=== PATIENT | male | born 1960 | race Caucasian/White ===

== ENCOUNTER 2018-04-17 12:55 | Emergency (ER) | payer MEDICAID ==
[~2018-04-17] VITALS: Ht 165.1 cm; Wt 68.0 kg
[2018-04-17 13:24] VITALS: BP 149/82
[2018-04-17 14:11] LABS: Urine WBC None Seen /hpf (0 - 3)
[2018-04-17 14:49] LABS: Urine Bacteria NONE SEEN /hpf (None Seen); Urine Blood TRACE /uL (Negative); Urine Mucus FEW (None Seen); Urine Specific Gravity 1.027 (1.001-1.035)
[2018-04-17 15:03] LABS: Hematocrit 39.6 % (41.0-53.0); Hemoglobin 13.3 g/dL (13.5-17.5); Mean Corpuscular Hemoglobin 31.6 pg (28.0-32.0); Mean Corpuscular Hgb Conc. 33.5 g/dL (32.0-36.0); Mean Corpuscular Volume 94.2 fL (80.0-100.0); Platelet Count (auto) 227 10^3/uL (140-450); White Blood Cell 12.4 10^3/uL (4.4-10.8)
[2018-04-17 15:17] LABS: Albumin 3.4 g/dL (3.4-5.0); Anion Gap 9 (5-15); Calcium 8.6 mg/dL (8.5-10.1); Carbon Dioxide 28 mmol/L (21-32); Chloride 103 mmol/L (98-107); Glucose 138 mg/dL (74-106); Magnesium 2.1 mg/dL (1.6-2.6); Potassium 3.6 mmol/L (3.5-5.1); Sodium 140 mmol/L (136-145)
[2018-04-17 15:20] LABS: Alanine Aminotransferase 19 U/L (16-61); Aspartate Aminotransferase 14 U/L (15-37); Blood Urea Nitrogen 18 mg/dL (7-18); GFR African American 146 mL/min; GFR Non-African American 120 mL/min
[2018-04-17 15:23] LABS: Basophils % (manual) 0 (0.0-2.0); Blast Cells 0; Myelocytes % 0; Promyelocytes % 0; Reactive Lymphocytes 0
[2018-04-17 15:35] LABS: Alkaline Phosphatase 81 U/L (45-117); Bilirubin, Total 0.3 mg/dL (0.2-1.0); Total Protein 7.1 g/dL (6.4-8.2)
[2018-04-17 16:25] LABS: Band Neutrophils % (manual) 1; Eosinophils % (manual) 2 (0-7); Lymphocytes % (manual) 32 (10.0-50.0); Metamyelocytes % 2; Monocytes % (manual) 3 (0-12)
== END 2018-04-17 17:37 | disposition home or self-care (01) ==
LOC: ER 12:55
DX: M54.5 Low back pain (principal); F41.9 Anxiety disorder, unspecified; D72.829 Elevated white blood cell count, unspecified
CPT/HCPCS: 36415; 71046; 72040; 72100; 80053; 81001; 83735; 84484; 85007; 85027; 93005

== ENCOUNTER 2018-04-18 12:14 | Emergency (ER) | payer MEDICAID ==
[~2018-04-18] VITALS: Ht 165.1 cm; Wt 72.6 kg
[2018-04-18 12:25] VITALS: BP 148/82
== END 2018-04-18 13:20 | disposition home or self-care (01) ==
LOC: ER 12:16
DX: M54.9 Dorsalgia, unspecified (principal); Z53.21 Procedure and treatment not carried out due to patient leaving prior to being seen by health care provider

== ENCOUNTER 2018-05-15 17:22 | Emergency (ER) | payer MEDICAID ==
[~2018-05-15] VITALS: Ht 165.1 cm; Wt 72.6 kg
[2018-05-15 17:45] VITALS: BP 121/76
== END 2018-05-15 22:16 | disposition left against medical advice (07) ==
LOC: ER 17:25
DX: M25.551 Pain in right hip (principal); Z53.21 Procedure and treatment not carried out due to patient leaving prior to being seen by health care provider

== ENCOUNTER 2018-12-05 15:48 | Emergency (ER) | payer MEDICAID ==
[~2018-12-05] VITALS: Ht 165.1 cm; Wt 77.1 kg
[2018-12-05] MEDS ORDERED: KETOROLAC TROMETH 60MG/2ML VIAL IM ONE (21:15)
[2018-12-05 21:42] VITALS: BP 129/75
== END 2018-12-05 21:44 | disposition home or self-care (01) ==
LOC: ER 15:51
DX: M54.31 Sciatica, right side (principal); M13.88 Other specified arthritis, other site
CPT/HCPCS: 96372; 99283; J1885

== ENCOUNTER 2019-06-13 12:05 | Emergency (ER) | payer MEDICAID ==
[~2019-06-13] VITALS: Ht 165.1 cm; Wt 81.6 kg
[2019-06-13 12:13] VITALS: BP 175/106
[2019-06-13] MEDS ORDERED: KETOROLAC TROMETH 60MG/2ML VIAL IM ONE (13:15)
== END 2019-06-13 13:35 | disposition home or self-care (01) ==
LOC: ER 12:06
DX: M54.16 Radiculopathy, lumbar region (principal); M25.561 Pain in right knee; G89.29 Other chronic pain; F15.10 Other stimulant abuse, uncomplicated
CPT/HCPCS: 96372; 99283; J1885